=== PATIENT | female | born 1980 | race Caucasian/White ===

== ENCOUNTER 2023-11-11 00:50 | Emergency (ER) | payer SELFPAY ==
[~2023-11-11] VITALS: Ht 157.5 cm; Wt 68.0 kg
[2023-11-11 01:19] VITALS: BP 127/68; PULSE 63; RESP 18; TEMP 98.7; O2SAT 100
[2023-11-11] MEDS ORDERED: STYE OP PRN (04:00)
[2023-11-11] MEDS ORDERED: IBUP-2028 MT (05:52)
[2023-11-11] MEDS ORDERED: NEOSODR LEFTEYE (05:52)
[2023-11-11] MEDS ORDERED: NEOMYCIN/BACITRACIN/POLYMYXIN OINT 14GM TOP SCH (09:00)
== END 2023-11-11 06:36 | disposition home or self-care (01) ==
LOC: ER 00:50
DX: T15.92XA Foreign body on external eye, part unspecified, left eye, initial encounter (principal); X58.XXXA Exposure to other specified factors, initial encounter; Y93.89 Activity, other specified; Y92.89 Other specified places as the place of occurrence of the external cause; Y99.8 Other external cause status
CPT/HCPCS: 99281; 99282